=== PATIENT | female | born 1930 | race Caucasian/White ===

== ENCOUNTER 2016-10-03 02:52 | Inpatient (IN) | payer OTHER ==
[~2016-10-03] VITALS: Ht 162.6 cm; Wt 45.4 kg
--- NOTE | 2016-10-03 03:30 | NUR ---
PT KEVIN FROM [facility] FOR AMS, LOW BP, LOW O2 SATS. PT ARRIVED MINIMALLY RESPONSIVE WITH COPIOUS AMOUNT OF WATERY STOOL UNDER PATIENTS BUTTOCKS AND LEGS. BP 73/46 ON ARRIVAL. HR 70. EXTREMETIES COLD, TYMP TEMP 92.5, TA TEMP 95.4 PER , PT HAD BEEN CONSTIPATED AND HAD BEEN GIVEN MAG CITRATE. IV ACCESS ESTABLISHED BY DR HENNING LH 20G. 1L WARM NS INFUSING. PT CLEANED OF STOOL. GUIAC POS. STOOL BROWN IN COLOR. RECTAL TEMP 96.7. WARM BLANKETS PLACED
--- NOTE | 2016-10-03 03:30 | ED CRITICAL CARE ---
History of Present Illness General Chief Complaint: General Adult Stated Complaint: PT BIBA"PT IN LARGE AMOUTN OF FECES" FROM ECF EVAL Source: EMS, W10 Exam Limitations: clinical condition Vital Signs & Intake/Output Vital Signs & Intake/Output Vital Signs Date Time Temp Pulse Resp B/P Pulse O2 O2 Flow FiO2 Ox Delivery Rate 10/03 0540 95.2 89 20 122/65 99 Nasal 4.0L Cannula 10/03 0505 137/63 10/03 0430 99 Nasal 4.0L Cannula 10/03 043 87 18 102/55 100 Nasal 4.0L Cannula 10/03 0417 94.8 87 18 119/58 100 Nasal 4.0L Cannula 10/03 0350 77/47 10/03 0330 78/48 10/03 0300 95.4 70 18 73/46 99 Nasal 6.0L Cannula (MILADY OLIVIER,JACK) Allergies Uncoded Allergies: BEE VENOM (UNKNOWN 10/03/16) Reconcile Medications Aspirin (Ecotrin*) 81 MG TABLET.DR 1 TAB PO DAILY heart (Reported) Baicalin/Catechin (Limbrel 500 MG Capsule) 500 MG CAPSULE 1 TAB PO BID SUPPLEMENT (Reported) Cyanocobalamin (Vitamin B-12) (Vitamin B-12) 500 MCG TABLET 1 TAB PO DAILY SUPPLEMENT (Reported) Furosemide (Lasix) 20 MG TABLET 1 TAB PO Q48 HEART (Reported) Lenalidomide (Revlimid) 5 MG CAPSULE 1 TAB PO Q48 MDS (Reported) Lisinopril 2.5 MG TABLET 1 TAB PO DAILY HTN (Reported) Mirtazapine (Remeron) 15 MG TAB.RAPDIS 0.5 TAB PO QHS SLEEP (Reported) Triage Nurses Notes Reviewed? yes Onset: Abrupt Duration: hour(s): (FEW) Timing: single episode today Injury Environment: ECF Severity: severe HPI: This is a 86-year-old female history of hypertension and dementia who presents via EMS from [facility] for chief complaint of diminished responsiveness, hypotension. According to EMS she was found covered in stool minimally responsive. who arrived in the ER later said that she was noted to be hypoxic and hypotensive in the nursing facility. They've given her an enema because she had some issues with constipation. She was doing well until then. Also has a history of neutropenia on a "cancer pill" he states. Past History Medical History Any Pertinent Medical History? see below for history Neurological: dementia Cardiovascular: hypertension Cancer(s): NEUTROPENIA Surgical History Surgical History: non-contributory Family History Hx Contributory? No Review of Systems Review of Systems Constitutional: Denies: fever. Eyes: Reports: no symptoms. Ears, Nose, Throat, Mouth: Reports: no symptoms. Respiratory: Denies: cough. Cardiovascular: Denies: chest pain. Gastrointestinal/Abdominal: Reports: diarrhea. Genitourinary: Reports: no symptoms. Musculoskeletal: Reports: no symptoms. Skin: Reports: no symptoms. Neurological/Psychological: Reports: see HPI (AMS). All Other Systems: Reviewed and Negative Physical Exam Physical Exam General Appearance: anxious, cachetic, moderate distress, thin Head: SUNKEN EYES Eyes: Bilateral: PERRL. Ears, Nose, Throat, Mouth: DRY MUCUS MEMBRANES Neck: normal inspection Respiratory: normal breath sounds, chest non-tender, no respiratory distress Cardiovascular: regular rate/rhythm Peripheral Pulses: 1+ radial (R), 1+ radial (L) Gastrointestinal: soft, non-tender Genital/Rectal: BROWN LIQUID, GUIAC POSITIVE STOOL Extremities: normal range of motion Neurologic/Psych: awake, LETHARGIC Skin: intact, pallor Core Measures ACS in differential dx? No CVA/TIA Diagnosis: No Severe Sepsis Present: Yes BC x2: Yes Lactic Acid x2: Yes IV ABX Broad Spectrum: Yes NS/LR Started: Yes Septic Shock Present: No ED Sepsis Exam Date of Focused Sepsis Exam: 10/03/16 Time of Focused Sepsis Exam: 0546 Sepsis Cardiac Exam: Regular Rate/Rhythm Sepsis Resp Exam: CTA Sepsis Cap Refill Exam: >2 sec Sepsis Peripheral Pulse Exam: Weak Sepsis Peripheral Pulse Location: Radial Sepsis Skin Color Exam: Pale Skin Temp/Moisture Exam: Cool/Dry Progress Differential Diagnoses I considered the following diagnoses in my evaluation of the patient: [ HYPOVOLEMIC SHOCK, SEPTIC SHOCK, COLITIS, ARABELLA, ] Plan of Care: Orders Procedure Date/time Status Nothing by Mouth 10/03 B Active LACTIC ACID 10/03 899 Active HEPATIC FUNCTION PANEL 10/03 899 Active BASIC ELECTROLYTES PLUS BUN&CR 10/03 899 Active LACTIC ACID 10/03 628 Active SWALLOW EVALUATION 10/03 618 Active TRC EVALUATION (GEN) 10/03 618 Active OXYGEN SETUP (GEN) 10/03 618 Active Pathway - chart 10/03 618 Active House Staff 10/03 618 Active Patient Data 10/03 618 Active STREP PNEUMO URINARY ANTIGEN 10/03 618 Active LEGIONELLA URINARY ANTIGEN 10/03 618 Active NUTRITIONAL CONSULT 10/03 618 Active URINALYSIS 10/[address] CHEST WO IV CONTRAST 10/03 0551 Active Admit to inpatient 10/03 0545 Active Code Status 10/[address] ABD & PELVIS W/O IV CONTRAS 10/03 0521 Active Stewart, Insertion/Removal/Asses 10/03 0329 Active RAPID VIRAL INFLUENZA A 10/03 032 Active CULTURE,URINE 10/03 032 Active CULTURE,STOOL 10/03 0329 Active C.DIFFICILE 10/03 032 Active BLOOD CULTURE 10/03 0329 Active TROPONIN LEVEL 10/03 0329 Complete PARTIAL THROMBOPLASTIN TIME 10/03 0329 Complete PROTHROMBIN TIME 10/03 0329 Complete AMMONIA 10/03 0329 Complete MAGNESIUM 10/03 0329 Complete LACTIC ACID 10/03 0329 Complete COMPREHENSIVE METABOLIC PANEL 10/03 0329 Complete CBC WITHOUT DIFFERENTIAL 10/03 0329 Complete EKG 10/03 0329 Active VTE Mechanical Prophylaxis 10/03 UNK Active Vital Signs 10/03 UNK Active MISTAKE 10/03 UNK Active Intake & Output 10/03 UNK Active Current Medications Sig/Gabi Start time Last Medication Dose Stop Time Status Admin Vancomycin HCl 1,000 MG Q12 10/03 2200 UNir Dextrose/Water 250 ML (D5W) Ceftazidime 1,000 MG IQ8 10/03 1600 UNVr (Fortaz) Metronidazole 500 MG IQ8 10/03 1600 UNVr (Flagyl) N/A 1 UNIT (No Carrier) Heparin Sodium 5,000 UNIT Q8 10/03 1400 UNVr (Porcine) Sodium Chloride 1,000 ML Q8H 10/03 0630 UNVr (Normal Saline 0.9%) Ceftazidime 1,000 MG ONCE ONE 10/03 0600 UNVr (Fortaz) 10/03 0601 Vancomycin HCl 1,000 MG ONCE ONE 10/03 0600 UNir Dextrose/Water 250 ML 10/03 0659 (D5W) Sodium Chloride 1,000 ML BOLUS ONE 10/03 0545 UNVr (Normal Saline 0.9%) 10/03 0644 Ceftriaxone Sodium 1,000 MG ONCE ONE 10/03 0445 CANr (Rocephin) 10/03 0446 Metronidazole 500 MG ONCE ONE 10/035 UNVr (Flagyl) 10/03 0544 N/A 1 UNIT (No Carrier) Laboratory Tests 10/03/16 0340: Anion Gap 21 H, Estimated GFR 28 L, BUN/Creatinine Ratio 28.2 H, Glucose 234 H, Lactic Acid 9.5 H, Calcium 9.7, Magnesium 3.0 H, Total Bilirubin 3.1 H, AST 3606 H, ALT 1704 H, Alkaline Phosphatase 1335 H, Ammonia < 9 L, Troponin I 0.10, Total Protein 5.9 L, Albumin 2.7 L, Globulin 3.2, Albumin/Globulin Ratio 0.8 L, PT 16.1 H, INR 1.54 H, APTT 33, CBC w Diff MAN DIFF ORDERED, RBC 2.20 L, MCV 115.8 H, MCH 37.4 H, RDW 16.0 H, Segmented Neutrophils 22 L, Band Neutrophils 6 H, Lymphocytes 64 H, Monocytes 8, Platelet Estimate ADEQUATE, Poikilocytosis FEW, Anisocytosis 2+, Macrocytic Cells 1+, PUBS MCHC 32.3 L, Fld Total RBCs Counted 100 Microbiology 10/03 618 URINE ROUT: Legionella Antigen - ORD 10/03 618 URINE ROUT: Streptococcus pneumoniae Antigen (M - ORD 10/03 0436 URINE ROUT: Urine Culture - RECD 10/03 419 STOOL: Clostridium difficile Toxin A & B - RECD 10/03 419 STOOL: Stool Culture - RECD 10/03 328 NASOPHARYN: Influenza Virus A & B Rapid Smear - ORD 10/03 328 BLOOD: Blood Culture - ORD 10/03 328 BLOOD: Blood Culture - ORD EKG, TELE MONITOR, 2 LARGE IV'S STARTED. NS FLUID RESUSSCITATION, IV ABX ORDERED. STEWART CATHETER PLACED. PATIENT NORMOTENSIVE AFTER 2 L SALINE. IMPROVING MENTAL STATUS. AT BEDSIDE. CT IMAGING ORDERED. D/W HOSPITALIST. 3RD LITER NS INFUSING. ADMITTED TO ICU FOR SEPSIS, SHOCK LIVER CT RESULTS CONSISTENT WITH MESENTERIC ISCHEMIA. D/W HOSPITALIST AND MOD. PATIENT DNR/DNI. CURRENTLY MORE HEMODYNAMICALLY STABLE. RESIDENT TO DISCUSS RESULTS WITH VASCULAR/SURGERY. (MILADY OLIVIER,JACK) Diagnostic Imaging: Viewed by Me: CT Scan. Discussed w/RAD: CT Scan. Initial ED EKG: NSR, FIRST DEGREE AV BLOCK Rhythm Strip: sinus tachycardia Comments: PATIENT: MIHIR BLOOM PRESENT AGE: 86 PATIENT ACCOUNT NO: [id number] : 30 LOCATION: [facility] ORDERING PHYSICIAN: JACK SPENCER MD SERVICE DATE: 10/03/16 EXAM TYPE: CAT - CT ABD & PELVIS W/O IV CONTRAS; CT CHEST WO IV CONTRAST EXAMINATION: CT CHEST, ABDOMEN AND PELVIS WITHOUT CONTRAST. CLINICAL INFORMATION: Hypertensive. Shock. Aspiration. COMPARISON: None. TECHNIQUE: Multidetector volumetric CT imaging of the chest, abdomen and pelvis was obtained without contrast. Coronal and sagittal reformatted images performed at CT scanner. DLP: 454.41 mGy-cm. FINDINGS: There is artifact from the patient's arms at her side throughout the exam. CT CHEST: Lungs: The lungs are clear with no evidence of inflammation or nodules. Mediastinum: There is dilatation of the esophagus from thoracic inlet through the gastroesophageal junction with a moderate-sized hiatal hernia. Hypodense nodule at the isthmus of the thyroid measuring 1.2 cm. This can be further assessed with nonemergent thyroid ultrasound. There is atherosclerotic vascular wall calcifications of aorta. Ascending aorta measures 3.4 cm in diameter. There is vascular calcifications of the carotid vessels. Pleura: There is no pleural effusion. No pleural mass or thickening. Axilla: No lymphadenopathy. CT ABDOMEN AND PELVIS: LIVER, GALLBLADDER, AND BILIARY TREE: 1.8 cm hypodensity and adjacent 1.3 cm hypodensity left lobe of liver anteriorly segment 4. These are indeterminate. Status post cholecystectomy. Extrahepatic CBD measures 7 mm. There is a small volume of air in peripheral tubular structures anterior left lobe of liver consistent with air in portal vein. PANCREAS: Pancreas is atrophic. SPLEEN: Spleen normal in size and contour. No focal lesion. ADRENAL GLANDS: Fullness of the left adrenal gland without distinct nodule. KIDNEYS AND URETERS: The kidneys are normal in size, shape, and attenuation. No hydronephrosis, hydroureter, or calculi seen. No perinephric stranding. BLADDER: Stewart catheter within the bladder. Bladder empty. GASTROINTESTINAL TRACT: There is distention of the stomach with air-fluid level. There is dilatation of small bowel loops diffusely with air-fluid levels. This is likely from ileus. There is mild distention of the colon primarily involving the sigmoid but does extend through the ascending colon and cecum. Bowel wall thickening and edema in the left distal colon and proximal sigmoid colon with air in the bowel wall. Smaller collections of bowel gas in the remainder of the colon bowel wall. There is also some air in the adjacent pericolonic fat. Findings consistent with bowel ischemia of the left colon. MESENTERY: Small amount of free air. There is also air within small veins throughout the mesentery consistent with portal venous air. ABDOMINAL WALL: No significant hernia is appreciated. LYMPH NODES: Normal. VASCULAR: Atherosclerotic vascular calcifications of aorta and iliac vessels. PELVIC VISCERA: Uterus is absent or atrophic. No adnexal abnormality. OSSEOUS STRUCTURES: Levoscoliosis of lumbar spine with multilevel disc height narrowing and endplate spurs throughout the thoracic and lumbar spine degenerative facet joint arthrosis at lower lumbar spine. There is marked degenerative joint narrowing with subchondral cystic change and spurring of the left femoral head and acetabulum. Moderate joint narrowing of the right hip joint. Degenerative joint narrowing and sclerosis of the glenohumeral joint of both shoulders. 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 There is evidence of bowel ischemia of the colon with portal venous air in liver and mesentery. There is a small amount of free air is well. The colon has edematous bowel wall with air in the bowel wall. 2. Dilated esophagus with large hiatal hernia. 3. 2 small hypodense lesions left lobe of liver statistically likely small hepatic cyst. Nonemergent ultrasound of the helpful for further assessment. 4. Status post cholecystectomy. 5. Probable status post hysterectomy. Clinically correlate. 6. Stewart catheter within the bladder. This critical result was discussed with Dr. Spencer on 10/03/2016, 6:30 AM and it was ascertained that the content and urgency of the report was understood at the time of direct communication. DICTATED BY: ADÁN ABREU MD DATE/TIME DICTATED:10/03/16610 MARINE REPORTER:ANN DATE/TIME TRANSCRIBED:10/03/16610 CONFIDENTIAL, DO NOT COPY WITHOUT APPROPRIATE AUTHORIZATION. <Electronically signed in Other Vendor System> SIGNED BY: ADÁN ABREU MD 10/03/16 0642 Departure Departure Time of Disposition: 631 Disposition: STILL A PATIENT Condition: Stable Clinical Impression Primary Impression: Hypovolemic shock Secondary Impressions: Heme positive stool, Neutropenic, Shock liver Referrals: KING ENCARNACION MD (PCP/Family) Departure Forms: Customer Survey General Discharge Information Admission Note Spoke With: LAURO CASTANEDA MD Documentation of Exam: Documentation of any treatments & extenuating circumstances including Concerns Regarding Discharge (functional status, medication knowledge or non-compliance, living conditions, etc.) that warrant an admission rather than observation: [IV FLUID RESUSSCITATION, IV ABX, F/U CULTURES, CRITICAL CARE CONSULT] Critical Care Note Critical Care Note Critical Care Time: 75-104 min
--- NOTE | 2016-10-03 03:35 | NUR ---
RECTAL TEMP 96.7. NO BROKEN SKIN NOTED. UNBLANCHABLE RED AREAS TO COCCYX. SECOND IV ACCESS ESTABLISHED BY DR HENNING RFA 18G. MUCOUS MEMBRANES VERY DRY.
[2016-10-03 04:09] LABS: HEMATOCRIT 25.5 % (37-47); MEAN CORPUSCULAR HGB 37.4 PG (27.0-31.0); MEAN CORPUSCULAR HGB CONC 32.3 G/DL (33.0-37.0); MEAN CORPUSCULAR VOLUME 115.8 FL (81.0-99.0)
[2016-10-03 04:14] LABS: PT 16.1 SEC (9.4-12.5); PTT 33 SEC (25-37)
--- NOTE | 2016-10-03 05:03 | NUR ---
CRITICAL TEST RESULTS [id number] MIHIR BLOOM 86 F TESTS AND RESULTS: LACTIC ACID 9.5 Results received and read back by: MARIO MCGOWAN Results received date and time: 10/03/16 0503 The following provider was notified of the results, and read the results back: DR HENNING Notified date and time: 10/03/16 at 0503
--- NOTE | 2016-10-03 05:05 | NUR ---
SECOND LITER NS INFUSED. BP 137/63. THIRD LITER NS INFUSING PER DR HENNING. PT MORE ALERT. SCREAMS EVERY TIME SHE IS MOVED OR ROLLED. AT BEDSIDE
[2016-10-03 05:19] LABS: WHITE BLOOD CELL COUNT 0.7 /CUMM (4.8-10.8)
--- NOTE | 2016-10-03 05:19 | NUR ---
CRITICAL TEST RESULTS [id number] MIHIR BLOOM 86 F TESTS AND RESULTS: WBC 0.7 Results received and read back by: MARIO MCGOWAN Results received date and time: 10/03/16 0519 The following provider was notified of the results, and read the results back: DR HENNING Notified date and time: 10/03/16 at 0519
--- NOTE | 2016-10-03 05:56 | History & Physical ---
CATRACHITA OLIVIER,JOSERosa 10/03/16 0554: General Information and HPI MD Statement: I have seen and personally examined MIHIR BLOOM and documented this H&P. The patient is a 86 year old F who presented with a patient stated chief complaint of [weakness]. 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 Given the hx of significant dementia and decreased responsiveness most of the history is obtained from . He stated that she had been at [facility] for decreased by mouth intake and weakness on 2016. Subsequently she was discharged to [facility]. This a.m. patient had problem with constipation and was given an enema. Her said she was reportedly doing well before that. Has been also notes that patient has had increased difficulty swallowing the past few days. Notable surgical history includes a "bile duct surgery" about 4 [address] ago[address] Patient sees Dr. Braden (sp?) At [facility] for hematology oncology, and her PCP is Dr. Moore (sp?). Allergies/Medications Allergies: Uncoded Allergies: BEE VENOM (UNKNOWN 10/03/16) Home Med list Aspirin (Ecotrin*) 81 MG TABLET. 1 TAB PO DAILY heart (Reported) Baicalin/Catechin (Limbrel 500 MG Capsule) 500 MG CAPSULE 1 TAB PO BID SUPPLEMENT (Reported) Cyanocobalamin (Vitamin B-12) (Vitamin B-12) 500 MCG TABLET 1 TAB PO DAILY SUPPLEMENT (Reported) Furosemide (Lasix) 20 MG TABLET 1 TAB PO Q48 HEART (Reported) Lenalidomide (Revlimid) 5 MG CAPSULE 1 TAB PO Q48 MDS (Reported) Lisinopril 2.5 MG TABLET 1 TAB PO DAILY HTN (Reported) Mirtazapine (Remeron) 15 MG TAB.RAPDIS 0.5 TAB PO QHS SLEEP (Reported) Compliance With Home Meds: UNKNOWN Past History Travel History Traveled to [place] past 21 day No Medical History Neurological: dementia Cardiovascular: hypertension Blood Disorders: NEUTROPENIA Cancer(s): MDS Surgical History Surgical History: BILE DUCT SURGERY 4 YRS AGO Past Family/Social History Functional Ability ADLs Needs Assist: dressing, eating, toileting, bathing. Ambulation: non-ambulatory IADLs Needs Assist: shopping, housework, finances, food prep, telephone, transportation, medication admin. Review of Systems Review of Systems Constitutional: Reports: no symptoms. Comments UNABLE TO OBTAIN ROS Exam & Diagnostic Data Last 24 Hrs of Vital Signs/I&O Vital Signs Date Time Temp Pulse Resp B/P Pulse O2 O2 Flow FiO2 Ox Delivery Rate 10/03 0540 95.2 89 20 122/65 99 Nasal 4.0L Cannula 10/03 0505 137/63 10/03 0430 99 Nasal 4.0L Cannula 10/03 0430 87 18 102/55 100 Nasal 4.0L Cannula 10/03 0417 94.8 87 18 119/58 100 Nasal 4.0L Cannula 10/03 0350 77/47 10/03 0330 78/48 10/03 0300 95.4 70 18 73/46 99 Nasal 6.0L Cannula Intake & Output 10/03 0800 10/03 0000 10/02 1600 Intake Total 2000 Output Total Balance 2000 Intake, IV 2000 Patient 45.359 kg Weight Physical Exam General Appearance Mild Distress Skin pale HEENT TEMPORAL WASTING, CACHETIC, dry mucous membranes Cardiovascular Regular Rate, No Murmurs Lungs given pt's clinical status was not able to asucultate lungfields. Peripheral exam showed no evidence of wheezes or rhonchi. Abdomen Soft, No Tenderness Neurological severe dementia Extremities No Edema, Normal Pulses, No Tenderness/Swelling Last 24 Hrs of Labs/Jose De Jesus: Laboratory Tests 10/03/16 0340: Anion Gap 21 H, Estimated GFR 28 L, BUN/Creatinine Ratio 28.2 H, Glucose 234 H, Lactic Acid 9.5 H, Calcium 9.7, Magnesium 3.0 H, Total Bilirubin 3.1 H, AST 3606 H, ALT 1704 H, Alkaline Phosphatase 1335 H, Ammonia < 9 L, Troponin I 0.10, Total Protein 5.9 L, Albumin 2.7 L, Globulin 3.2, Albumin/Globulin Ratio 0.8 L, PT 16.1 H, INR 1.54 H, APTT 33, CBC w Diff MAN DIFF ORDERED, RBC 2.20 L, MCV 115.8 H, MCH 37.4 H, RDW 16.0 H, Segmented Neutrophils 22 L, Band Neutrophils 6 H, Lymphocytes 64 H, Monocytes 8, Platelet Estimate ADEQUATE, Poikilocytosis FEW, Anisocytosis 2+, Macrocytic Cells 1+, PUBS MCHC 32.3 L, Fld Total RBCs Counted 100 Microbiology 10/03 618 URINE ROUT: Legionella Antigen - ORD 10/03 618 URINE ROUT: Streptococcus pneumoniae Antigen (M - ORD 10/03 0436 URINE ROUT: Urine Culture - RECD 10/03 419 STOOL: Clostridium difficile Toxin A & B - RECD 10/03 419 STOOL: Stool Culture - RECD 10/03 328 NASOPHARYN: Influenza Virus A & B Rapid Smear - ORD 10/03 328 BLOOD: Blood Culture - ORD 10/03 328 BLOOD: Blood Culture - ORD Assessment/Plan Assessment: This is a 86-year-old female past medical history significant for dementia, MDS, and hypertension who was brought in by ambulance from [facility] for chief complaint of hypotension and decreased responsiveness. ED workup showed pancytopenia and severe sepsis with multi-organ dysfunction. She was hypotensive and recieved 3L bolus. Patient is admitted to ICU for further workup and management. PLAN 1. Severe sepsis with multiorgan dysfunction: Vitals showed temperature 95.2, BP 73/46, 100% on 4 L O2. She shows evidence of shock liver with AST 3606 and ALT 1704 with an elevated T bili, additionally, she has elevated BUN and creatinine. WBC is 0.7; pt has known hx of MDS on procrit and Revlimid. First troponin negative. Lactic acid 9.5. Currently, there is no definitive source of infection. Patient does have history of bile duct instrumentation around for years ago for "kinked bile duct", UA is currently pending, and she does not have any shortness of breath. endorses recent hx of difficulty swallowing possible aspiration PNA. In ED she's had several episodes of diarrhea; states that she was constipated this a.m. and was given an enema. Given patient 's history dementia it is difficult to obtain an adequate review of system. She has a SOFA score of 11 with predicted mortality of 40-50%; her baseline dementia likely skews her score. * Urine culture * Blood culture * Sputum culture * C. difficile * Rapid influenza * CT of chest and abdomen * Start Vancomycin, cefotaxime, Flagyl * I/Os * Echocardiogram * IVF * Q4 labs * Fractionate bilirubin * swallow eval 2. Pancytopenia: Patient has history of MDS per . She is getting Revlimid 5 mg by mouth every other day. Additionally she is on Procrit IM when necessary once weekly for low hemoglobin. This time she has white count 0.7, with 6 bands with lymphocytic predominance. Her hemoglobin at 8.2, hematocrit 25.5 and platelet count showing "few giant." * Heme/onc consult in AM. 3. Hyperkalemia: Patient has potassium 5.7 admission. This is likely secondary to her acute renal failure with creatinine of 1.8. Home meds include Lasix 20 mg by mouth every other day. * Continue to monitor BEP * Hold home medication 6. Elevated anion gap: Pt has anion gap of 21; however her bicarb is low suggesting that the patient likely has a mixed picture of alkalosis and AGMA. Given that lactic acid is elevated to 9.5 this is most likely etiology for her anion gap metabolic acidosis. * IV hydration * Trend lactic acid * Treat underlying source of infection 7. Dementia: Chronic and severe. NPO DNR/DNI Chemical DVT ppx As Ranked By This Provider Problem List: 1. Shock liver 2. Neutropenic 3. Hypovolemic shock Core Measures/Miscellaneous Acute Coronary Syndrome ACS Diagnosis: No Cerebrovascular Accident CVA/TIA Diagnosis: No Congestive Heart Failure CHF Diagnosis: No Venous Thromboembolism VTE Risk Factors: Acute medical illness, Age > 40, Cancer/chemo/oth therapy VTE Prophylaxis Ordered Inpt: Pharm- Lovenox No Mech VTE prophylaxis d/t: No contraindications No VTE Pharm Prophylaxis d/t: No contraindications VTE Diagnosis: No VTE Type: NONE VTE Confirmed by (Test): NONE Severe Sepsis Severe Sepsis Present: Yes BC x2: Yes Lactic Acid x2: Yes IV ABX Broad Spectrum: Yes NS/LR Started: Yes Septic Shock Septic Shock Present: No BC x2: Yes Lactic Acid: Yes IV ABX Broad Spectrum: Yes Focused Exam Completed: Yes NS/LR 30ml/kg w/in 3hrs: Yes IV Vasopressors started: No Miscellaneous Documentation Attending Case Discussed With: Dr. Rodriguez Primary Care Physician: KING ENCARNACION MD Patient sees these Specialists unknown Level of Patient Care: Critical Care (CRI) KYLER OLIVIER,STEVE 10/03/16 0607: Resident Review Statement Resident Statement: examined this patient, discussed with undergraduate intern Other Findings: This is an 86-year-old lady with a history significant for MDS, currently on by mouth meds for the same, hypertension, advanced dementia that presents to the emergency room from short-term rehabilitation after having been found in her stool, complaining of weakness, after she was given an enema for constipation. Majority of the history was obtained from the patient's ; states that she has been at [facility] for over a week now. Prior to that she was admitted at [facility] for dehydration, failure to thrive and decreased by mouth intake. States that since being at the [facility] facility she was doing better until this evening when she received the enema after which she got extremely dehydrated. While presenting to the emergency room her blood pressure was 80 systolic with modest response after 4 L of normal saline. At present she denies any chest pain, shortness of breath, nausea, vomiting or fevers. Physical exam- Vital signs at present are stable; appears cachetic, she is alert and oriented self only; cardiovascular and lung exam is unremarkable; scleral icterus b/l EKG Rate 86, PO2 24, QRS 84, QTC 474 Imaging CAT scan of the chest abdomen and pelvis- IMPRESSION: 1. There is evidence of bowel ischemia of the colon with portal venous air in liver and mesentery. There is a small amount of free air is well. The colon has edematous bowel wall with air in the bowel wall. 2. Dilated esophagus with large hiatal hernia. 3. 2 small hypodense lesions left lobe of liver statistically likely small hepatic cyst. Nonemergent ultrasound of the helpful for further assessment. 4. Status post cholecystectomy. 5. Probable status post hysterectomy. Clinically correlate. 6. Shafer catheter within the bladder. Labs significant for a white count of 0.7, hemoglobin 8.2, hematocrit 25.5, potassium 5.7, anion gap of 21, creatinine 1.7, lactic acid of 9.5, bilirubin 3.1, AST 3606, ALT 1704, alkaline phosphatase 1335 Assessment- 1. Severe sepsis with accompanying MODS, 2/2 mesenteric ischemia 2. Lactic acidosis, lactic acid 9.2; 2/2 mesenteric ischemia 3. Acute kidney injury with a BUN of 48, creatinine 1.7 4. Hyperkalemia, 5.7 5. Anion gap metabolic acidosis with anion gap of 21 6. Hyperbilirubinemia, 3.1 7. Transaminitis likely secondary to shock liver; AST 3606, ALT 1707 8. History of MDS 9. History of dementia 10. History of hypertension Plan- Admit to ICU Vitals per protocol Strict I's and O's Echocardiogram IV fluid hydration Recheck labs every 4 hours Fractionated bilirubin Critical care and oncology consult Cintron culture Start vancomycin, ceftazidime, Flagyl General and Vascular surgery consult Maintain map greater than 65 We'll keep nothing by mouth for now, swallow evaluation Pain pathway DVT prophylaxis with subcutaneous heparin DNR/DNI GET RECORDS FROM [facility] 8:04 AM- I spoke with Dr. Hernandez regarding the CT scan results. Given the lack of contrast she recommends that the patient also have geenral surgery on board as at this moment it is unclear if this mesenteric ischemia is 2/2 thrombus. If the family does chose to pursue surgery and general surgery does discover a clot burden, they will then consult Dr. Hernandez intra-operatively. 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 Patient is non-verbal but appears uncomfortable. After discussions with family, decision was made to provide comfort to patient in accordance with her wishes. Family ( son who is POA) wishes for comfort, no surgical intervention and no further needlesticks. Patient has been started on Morphine continuous subcutaneous drip, PRN Ativan, Scopolamine patch. Will titrate Morphine to adequate pain control. Family at bedside. Spiritual adviser has seen family. No further needlesticks. Hospice consult. Poor prognosis.
[2016-10-03] MEDS ORDERED: ASPIRIN EC81 M1 PO (06:08)
[2016-10-03] MEDS ORDERED: VITAMIN B-12500 MC2 PO (06:09)
[2016-10-03] MEDS ORDERED: LISINOPRIL2.5 M1 PO (06:09)
[2016-10-03] MEDS ORDERED: LASIX20 M1 PO (06:10)
[2016-10-03] MEDS ORDERED: LIMBREL 500 MG500 MG PO (06:10)
[2016-10-03] MEDS ORDERED: REMERON15 M3 PO (06:11)
[2016-10-03] MEDS ORDERED: REVLIMID5 M1 PO (06:12)
--- NOTE | 2016-10-03 06:42 | CT SCAN REPORT ---
EXAMINATION: CT CHEST, ABDOMEN AND PELVIS WITHOUT CONTRAST. CLINICAL INFORMATION: Hypertensive. Shock. Aspiration. COMPARISON: None. TECHNIQUE: Multidetector volumetric CT imaging of the chest, abdomen and pelvis was obtained without contrast. Coronal and sagittal reformatted images performed at CT scanner. DLP: 454.41 mGy-cm. FINDINGS: There is artifact from the patient's arms at her side throughout the exam. CT CHEST: Lungs: The lungs are clear with no evidence of inflammation or nodules. Mediastinum: There is dilatation of the esophagus from thoracic inlet through the gastroesophageal junction with a moderate-sized hiatal hernia. Hypodense nodule at the isthmus of the thyroid measuring 1.2 cm. This can be further assessed with nonemergent thyroid ultrasound. There is atherosclerotic vascular wall calcifications of aorta. Ascending aorta measures 3.4 cm in diameter. There is vascular calcifications of the carotid vessels. Pleura: There is no pleural effusion. No pleural mass or thickening. Axilla: No lymphadenopathy. CT ABDOMEN AND PELVIS: LIVER, GALLBLADDER, AND BILIARY TREE: 1.8 cm hypodensity and adjacent 1.3 cm hypodensity left lobe of liver anteriorly segment 4. These are indeterminate. Status post cholecystectomy. Extrahepatic CBD measures 7 mm. There is a small volume of air in peripheral tubular structures anterior left lobe of liver consistent with air in portal vein. PANCREAS: Pancreas is atrophic. SPLEEN: Spleen normal in size and contour. No focal lesion. ADRENAL GLANDS: Fullness of the left adrenal gland without distinct nodule. KIDNEYS AND URETERS: The kidneys are normal in size, shape, and attenuation. No hydronephrosis, hydroureter, or calculi seen. No perinephric stranding. BLADDER: Shafer catheter within the bladder. Bladder empty. GASTROINTESTINAL TRACT: There is distention of the stomach with air-fluid level. There is dilatation of small bowel loops diffusely with air-fluid levels. This is likely from ileus. There is mild distention of the colon primarily involving the sigmoid but does extend through the ascending colon and cecum. Bowel wall thickening and edema in the left distal colon and proximal sigmoid colon with air in the bowel wall. Smaller collections of bowel gas in the remainder of the colon bowel wall. There is also some air in the adjacent pericolonic fat. Findings consistent with bowel ischemia of the left colon. MESENTERY: Small amount of free air. There is also air within small veins throughout the mesentery consistent with portal venous air. ABDOMINAL WALL: No significant hernia is appreciated. LYMPH NODES: Normal. VASCULAR: Atherosclerotic vascular calcifications of aorta and iliac vessels. PELVIC VISCERA: Uterus is absent or atrophic. No adnexal abnormality. OSSEOUS STRUCTURES: Levoscoliosis of lumbar spine with multilevel disc height narrowing and endplate spurs throughout the thoracic and lumbar spine degenerative facet joint arthrosis at lower lumbar spine. There is marked degenerative joint narrowing with subchondral cystic change and spurring of the left femoral head and acetabulum. Moderate joint narrowing of the right hip joint. Degenerative joint narrowing and sclerosis of the glenohumeral joint of both shoulders. 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 There is evidence of bowel ischemia of the colon with portal venous air in liver and mesentery. There is a small amount of free air is well. The colon has edematous bowel wall with air in the bowel wall. 2. Dilated esophagus with large hiatal hernia. 3. 2 small hypodense lesions left lobe of liver statistically likely small hepatic cyst. Nonemergent ultrasound of the helpful for further assessment. 4. Status post cholecystectomy. 5. Probable status post hysterectomy. Clinically correlate. 6. Shafer catheter within the bladder. This critical result was discussed with Dr. Spencer on 10/03/2016, 6:30 AM and it was ascertained that the content and urgency of the report was understood at the time of direct communication.
--- NOTE | 2016-10-03 06:51 | NUR ---
BLOOD CULTURES X2 AND REPEAT LACTIC ACID DRAWN BY AMRIK CHEATHAM AND SENT TO LAB
--- NOTE | 2016-10-03 07:13 | NUR ---
FORTAZ ADMINISTERED. VANCO INFUSING LH SITE AT 250 ML/HR
--- NOTE | 2016-10-03 07:42 | NUR ---
REPORT GIVEN TO MECHANICAL DESIGN TECHNICIAN
--- NOTE | 2016-10-03 08:01 | NUR ---
CRITICAL TEST RESULTS [id number] MIHIR BLOOM 86 F TESTS AND RESULTS: LACTIC ACID 6.0 Results received and read back by: RADHA ARECHIGA Results received date and time: 10/03/16 0801 The following provider was notified of the results, and read the results back: DR JACOBSEN Notified date and time: 10/03/16 at
[2016-10-03 08:30] VITALS: BP 62/0
--- NOTE | 2016-10-03 08:46 | Event Note ---
Event Note Event Note: I had a family meeting with patient's Mr. Herrera Benavidez, daughter Gabriela and son Albino (power of tire molder). We extensively spoke about Mrs. Benavidez's current medical condition and options available namely comfort care versus acute surgical intervention. Surgical GRECIA Masterson was also present during this family meeting. We extensively explained the risks including a high chance of intraoperative mortality given her current medical condition and other preexisting comorbidities. Per her family, she had voiced numerous times when she was in sound mind that she did not want any surgical intervention or life- sustaining measures pursued. The conclusion of the meeting was that Mrs. Benavidez is to be made comfort measures only, we will place a hospice consult. The family wants us to discontinue all antibiotics, lab testing, radiology testing, etc. They have agreed to IV fluids. Again, her CODE STATUS has been changed to comfort measures only.
--- NOTE | 2016-10-03 11:00 | NUR ---
@0830-PT ARRIVED TO [facility] FROM ER AT THIS TIME. PRESENTS PALE/JAUNDICE TO EYES. MOANING, NOT FOLLOWING COMMANDS. TEMP 95.7. TRANSFERRED TO ICU BED., PLACED ON TELE MONITOR NSR 80S. UNABLE TO AUSCULTATE BP-DOPPLER BP CHECKED 62/0 READING OBTAINED-REPORTED TO HOUSESTAFF. ATTEMPTED TO INFUSE 1LNS BOLUS-IV SITE NOTED TO BE INFILTRATED. BOLUS ATTACHED TO 2ND IV SITE, BUT LEAKING AT SITE, SITE DC'D. ATTEMPTED X 3 FOR NEW ACCESS AT THIS TIME. PT ALSO NOTED TO BE INC OF LIQ STOOL, UPON INC CARE BEING PROVIDED, NOTED PT TO BE IMPACTED AND THIS RN DISIMPACTED LARGE AMTS OF HARD STOOL FROM RECTUM. RECTAL TEMP TAKEN AT THIS TIME, 95.6 READING. PT NOTED TO BE ON 4LNC, DIFF OBTAINING CONT O2SAT. 98% READING OBTAINED BY RT. LUNGS DIM. RR 26. STEWART NOTED IN PLACE WITH 15ML COULDY URINE. LFA SKIN TEAR NOTED BLEEDING, BACTIRACIN AND TELFA DSG PLACED. HOUSESTAFF DISCUSSING PT STATUS WITH FAMILY. PT MADE COMFORT MEASURES AT THIS TIME. NO FURTHER ATTEMPTS AT IVS, BLOOD DRAWS OR ABX THERAPY. SQ BUTTONS PLACED TO R AND L UPPER ARMS. PT MEDICATED WITH PRN MORPHINE AND PRN ATIVAN-SEE EMAR FOR DETAILS. FAMILY AT BEDSIDE-RIB CUTTER CALLED AND AT BEDSIDE FOR PRAYER. DISABILITY ADVOCATE CALLED BY RIB CUTTER PER REQUEST OF FAMILY. @1000-SCOP PATCH PLACED TO L EAR. DISABILITY ADVOCATE AT BEDSIDE FOR SACRAMENT OF SICK. PRAYER SHAWL PROVIDED BY RIB CUTTER. @1030, 2ND DOSE OF PRN MORPHINE ADMINISTERED THROUGH SQ BUTTON. @1100-PT NOTED TO CONT TO BE RESTLESS, AGITATED AT TIMES. DECISION MADE TO START MORPHINE GTT. AWAITING ARRIVAL OF MED FROM PHARMACY-FAMILY AWARE. HOSPICE CONSULT CALLED TO CASE MANAGEMENT BY HOUSESTAFF. COMFORT CART ORD FOR FAMILY. CONT TO MONITOR AND PROVIDE SUPPORT AND COMFORT TO PT AND FAMILY.
--- NOTE | 2016-10-03 11:26 | Event Note ---
Event Note Event Note: After talking with patient's family, including her son who is the power of personal injury attorney, patient has been started on morphine drip, as opposed to morphine every hour, per her situation. Drip ordered at 11am. Attending Dr. Lu also agrees to the plan.
--- NOTE | 2016-10-03 11:30 | NUR ---
@1120-PT STARTED ON MORPHINE DRIP THROUGH SQ BUTTON TO R ARM. CONCENTRATION 50OMG OF MORPHINE IN 50ML D5W. MORPHINE GTT STARTED AT 2MG/HR OR 0.2ML/HR. WILL FOLLOW PROTOCOL FOR PAIN AND MEDICATE NEEDED. FAMILY REMAINS AT BEDSIDE.
--- NOTE | 2016-10-03 14:09 | Admission Certification ---
Admission Certification Certification Statement - As attending physician, I certify that at the time of - admission, based on clinical presentation, severity of - symptoms, need for further diagnostic testing and - therapeutic interventions, and risk of adverse outcomes - without in-hospital treatment, in my clinical assessment, - this patient requires an acute hospital stay for a minimum - of two nights or longer. I have also considered psychsocial - factors such as support system, advanced age, financial - issues, cognitive issues, and failed out-patient treatments, - past re-admission history, safety of patient, and lack of - compliance as applicable. Specific rationale supporting this admission is: Severe sepsis secondary to bowel ischemia, comfort care and hospice placement
--- NOTE | 2016-10-03 14:15 | Event Note ---
Event Note Event Note: Declared at 1410 hrs, after examining for heart rate, pulse, breathing, pupillary reflex. Family informed. Nursing staff informed. Resident informed.
--- NOTE | 2016-10-03 14:34 | NUR ---
@1400-PT NOTED TO BECOME BRADYCARDIC, HR 50S FROM 80S. FAMILY AT BEDSIDE. MORPHINE GTT CONT AT 3MG/HR. @1410-PT ASYSTOLE-HOUSESTAFF AT BEDSIDE TO PRNOUNCE. EMOTIONAL SUPPORT PROVIDED TO FAMILY. ADMITTING CALLED. HOUSESTAFF TO CALL SENIOR ADVISOR DUE TO PT WITHIN 24HRS OF ARRIVAL TO HOSPTIAL.
--- NOTE | 2016-10-03 14:54 | Event Note ---
Event Note Event Note: I was called about this patient this morning after CT Abd/Pelvis found to have portal venous air, pneumatosis of the descending colon, and some free air in the mesentery. Patient with severe dementia from a rehab facility. Severe sepsis with MODF. Given clinical status, I did not believe the patient was a good candidate for an operative intervention as her mortality would be close to 100%. All of this was disussed with the patient's family who decided to not attempt aggressive measures and the patient was made comfort care.
--- NOTE | 2016-10-03 19:46 | Discharge Summary ---
See Addendum Visit Information Visit Dates Admission Date: 10/03/16 Discharge Date: 10/03/16 Hospital Course Course Attending Physician: TAMIKO ISABEL MD Primary Care Physician: KING ENCARNACION MD Consulting Request: Consulting Specialty: General Surgery Consulting Physician: Ne Flores DO Reason for Consult: ischemic bowel Hospital Course: 86 years old Ms Pramod with past medical history of hypertension, dementia, and MDS on Revlimid and Procrit, was admitted for altered mental status and hypotension, found to have ischemic bowel with evidence of free air, with labs and vitals showing severe sepsis. Patient was non-verbal but appeared uncomfortable. After discussions with family, decision was made to provide comfort to patient in accordance with her wishes. Family (son who is POA) wishes for comfort, no surgical intervention and no further needlesticks. Patient was been started on Morphine continuous subcutaneous drip, PRN Ativan, Scopolamine patch. Morphine titrated to adequate pain control. Family was at bedside and was well informed. Spiritual adviser had seen family. No further needlesticks were done and given her poor prognosis (also see lab values below), a hospice consult was placed. Family/POA decided on hospice care and she was discharged to hospice care within hospital. Allergies: Uncoded Allergies: BEE VENOM (UNKNOWN 10/03/16) Significant Procedures: Patient's family, who is the power of ip technology transactions attorney, denied any surgical intervention , any aggressive measures, any resuscitation or intubation. Patient was placed in hospice care after careful discussion with family members. Pertinent Lab Results: Laboratory Tests 10/03/16 0340: Anion Gap 21 H, Estimated GFR 28 L, BUN/Creatinine Ratio 28.2 H, Glucose 234 H, Lactic Acid 9.5 H, Calcium 9.7, Magnesium 3.0 H, Total Bilirubin 3.1 H, AST 3606 H, ALT 1704 H, Alkaline Phosphatase 1335 H, Ammonia < 9 L, Troponin I 0.10, Total Protein 5.9 L, Albumin 2.7 L, Globulin 3.2, Albumin/Globulin Ratio 0.8 L, PT 16.1 H, INR 1.54 H, APTT 33, CBC w Diff MAN DIFF ORDERED, RBC 2.20 L, MCV 115.8 H, MCH 37.4 H, RDW 16.0 H, Segmented Neutrophils 22 L, Band Neutrophils 6 H, Lymphocytes 64 H, Monocytes 8, Platelet Estimate ADEQUATE, Poikilocytosis FEW, Anisocytosis 2+, Macrocytic Cells 1+, PUBS MCHC 32.3 L, Fld Total RBCs Counted 100 CT abd-pelvis, chest: IMPRESSION: 1. There is evidence of bowel ischemia of the colon with portal venous air in liver and mesentery. There is a small amount of free air is well. The colon has edematous bowel wall with air in the bowel wall. 2. Dilated esophagus with large hiatal hernia. 3. 2 small hypodense lesions left lobe of liver statistically likely small hepatic cyst. Nonemergent ultrasound of the helpful for further assessment. 4. Status post cholecystectomy. 5. Probable status post hysterectomy. Clinically correlate. 6. Shafer catheter within the bladder. This critical result was discussed with Dr. Spencer on 10/03/2016, 6:30 AM and it was ascertained that the content and urgency of the report was understood at the time of direct communication. DICTATED BY: ADÁN ABREU MD DATE/TIME DICTATED:10/03/16610 ENVIRONMENTAL SERVICES TECHNICIAN:ANN DATE/TIME TRANSCRIBED:10/03/16610 Disposition Summary Disposition Principal Diagnosis: Septic shock secondary to ischemic bowel Additional Diagnosis: Hypertension, dementia, myelodysplastic syndrome Discharge Disposition: hospice - medical facilit Discharge Instructions General Discharge Information Code Status: Hospice Patient's Diet: Nothing by oral while in the hospital. As tolerated, as patient is in hospice care now. Patient's Activity: Patient is bedbound at baseline. Follow-Up Instructions/Appts: According to the course of hospice care. Copies To: NE FLORES DO; SHASHANK OLIVIER,KING
== END 2016-10-03 14:10 | disposition expired | DRG 871 ==
LOC: ENRESERVTM → ENRESERVDT → ERH 02:52 → ERHI 05:45 → CRI 05:45
PROVIDERS: Emergency Medicine; ADMIT Internal Medicine
DX: A41.9 Sepsis, unspecified organism (principal); R65.21 Severe sepsis with septic shock; K55.9 Vascular disorder of intestine, unspecified; C94.6 Myelodysplastic disease, not elsewhere classified; I10 Essential (primary) hypertension; F03.90 Unspecified dementia, unspecified severity, without behavioral disturbance, psychotic disturbance, mood disturbance, and anxiety; Z51.5 Encounter for palliative care
CPT/HCPCS: CCU; 74176; 81001; 82436; 87040; 87045; 87086; 87449; 87450; 87804; 87804-59; 93005; 93010; 96360; 96361; 96374; 99291; J0713; J1644; J2175; J3370